=== PATIENT | female | born 1990 | race Caucasian/White ===

== ENCOUNTER 2018-10-20 03:30 | Emergency (ER) | payer SELFPAY ==
[2018-10-20] MEDS ORDERED: AMOX/K CLAV 875 MG TAB ONE (04:16)
[2018-10-20] MEDS ORDERED: KETOROLAC 30 MG/ML INJ ONE (04:16)
--- NOTE | 2018-10-20 04:23 | EDPHYS ---
Physician Documentation [facility] Name: Lloyd Flores Age: 28 yrs Sex: Female : 1990 Arrival Date: 10/20/2018 Time: 03:31 Bed 19 Private MD: ED Physician Kem Reynoso HPI: 10/20 04:19 This 28 yrs old Female presents to ER via Ambulatory with complaints of Tooth gs Infection. 04:19 The patient presents with pain, swelling. The problem is located in the lower right gs first molar. Onset: The symptoms/episode began/occurred 2 day(s) ago. Duration: The symptoms are continuous. Modifying factors: The symptoms are alleviated by nothing, the symptoms are aggravated by chewing, cold fluids. Associated signs and symptoms: Pertinent positives: nausea. Associated signs and symptoms: Pertinent positives: pain. Severity of symptoms: At their worst the symptoms were moderate, in the emergency department the symptoms are unchanged. The patient has experienced similar episodes in the past, a few times. 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 - Social history:: Smoking status: Patient uses tobacco products, denies chronic smoking, but will smoke occasionally. - Ebola Screening: : No symptoms or risks identified at this time. ROS: 04:19 All other systems are negative. gs Exam: 04:19 Head/Face: Normocephalic, atraumatic. Eyes: Pupils equal round and reactive to light, gs extra-ocular motions intact. Lids and lashes normal. Conjunctiva and sclera are non-icteric and not injected. Cornea within normal limits. Periorbital areas with no swelling, redness, or edema. Neck: Trachea midline, no thyromegaly or masses palpated, and no cervical lymphadenopathy. Supple, full range of motion without nuchal rigidity, or vertebral point tenderness. No Meningismus. Chest/axilla: Normal chest wall appearance and motion. Nontender with no deformity. No lesions are appreciated. Cardiovascular: Regular rate and rhythm with a normal S1 and S2. No gallops, murmurs, or rubs. Normal PMI, no JVD. No pulse deficits. Respiratory: Lungs have equal breath sounds bilaterally, clear to auscultation and percussion. No rales, rhonchi or wheezes noted. No increased work of breathing, no retractions or nasal flaring. Abdomen/GI: Soft, non-tender, with normal bowel sounds. No distension or tympany. No guarding or rebound. No evidence of tenderness throughout. Back: No spinal tenderness. No costovertebral tenderness. Full range of motion. Skin: Warm, dry with normal turgor. Normal color with no rashes, no lesions, and no evidence of cellulitis. MS/ Extremity: Pulses equal, no cyanosis. Neurovascular intact. Full, normal range of motion. Neuro: Awake and alert, GCS 15, oriented to person, place, time, and situation. Cranial nerves II-XII grossly intact. Motor strength 5/5 in all extremities. Sensory grossly intact. Cerebellar exam normal. Normal gait. 04:19 Constitutional: The patient appears alert, awake. 04:19 ENT: Dental exam: cellulitis, that is mild, dental caries, that is moderate, specifically in the lower right first molar (#30). Vital Signs: 03:45 BP 110 / 57; Pulse 90; Resp 16; Temp 98.7; Pulse Ox 100% ; Weight 96.62 kg; Height 2 aa1 ft. 6 in. (76.20 cm); Pain 5/10; 03:45 Body Mass Index 166.39 (96.62 kg, 76.20 cm) aa1 MDM: 04:04 Patient medically screened. 04:19 Differential diagnosis: dental caries, gingivitis, dental abscess. Data reviewed: vital gs signs, nurses notes. Counseling: I had a detailed discussion with the patient and/or guardian regarding: the historical points, exam findings, and any diagnostic results supporting the discharge/admit diagnosis, the need for outpatient follow up, a dentist. Response to treatment: the patient's symptoms have mildly improved after treatment, and as a result, I will discharge patient. Administered Medications: 04:21 Drug: TORadol 30 mg Route: IM; Site: right deltoid; tr5 04:30 Follow up: Response: No adverse reaction; Pain is decreased tr5 04:22 Drug: Amoxicillin 875 mg Route: PO; tr5 04:30 Follow up: Response: No adverse reaction tr5 Disposition: 10/20/18 04:22 Discharged to Home. Impression: Gingivitis and periodontal diseases, Dental caries. - Condition is Stable. - Discharge Instructions: Dental Caries, Adult. - Prescriptions for Amoxicillin 875 mg Oral Tablet - take 1 tablet by ORAL route every 12 hours for 7 days; 14 tablet. Tylenol- Codeine #4 300-60 mg Oral Tablet - take 1 tablet by ORAL route every 6 hours As needed; 6 tablet. - Medication Reconciliation Form, Thank You Letter, Antibiotic Education, Prescription Opioid Use form. - Follow up: Private Physician; When: 2 - 3 days; Reason: Re-evaluation by your physician. Signatures: Brinda Limon RN RN aa1 Kem Reynoso MD MD gs Brian Bustillo RN RN tr5 Corrections: (The following items were deleted from the chart) 04:31 04:22 10/20/2018 04:22 Discharged to Home. Impression: Gingivitis and periodontal tr5 diseases; Dental caries. Condition is Stable. Forms are Medication Reconciliation Form, Thank You Letter, Antibiotic Education, Prescription Opioid Use. Follow up: Private Physician; When: 2 - 3 days; Reason: Re-evaluation by your physician. gs
--- NOTE | 2018-10-20 04:23 | ER ---
Nurse's Notes [facility] Name: Lloyd Flores Age: 28 yrs Sex: Female : 1990 Arrival Date: 10/20/2018 Time: 03:31 Bed 19 Private MD: Diagnosis: Gingivitis and periodontal diseases;Dental caries Presentation: 10/20 03:45 Presenting complaint: Patient states: R sided tooth pain with nausea and dizziness x 3 aa1 days. Transition of care: patient was not received from another setting of care. Onset of symptoms was October 18, 2018. Risk Assessment: Do you want to hurt yourself or someone else? Patient reports no desire to harm self or others. Initial Sepsis Screen: Does the patient meet any 2 criteria? No. Patient's initial sepsis screen is negative. Does the patient have a suspected source of infection? No. Patient's initial sepsis screen is negative. Care prior to arrival: None. 03:45 Method Of Arrival: Ambulatory aa1 03:45 Acuity: [id number] 4 aa1 Triage Assessment: 03:45 General: Appears in no apparent distress. comfortable, Behavior is calm, cooperative, aa1 appropriate for age. 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 - Social history:: Smoking status: Patient uses tobacco products, denies chronic smoking, but will smoke occasionally. - Ebola Screening: : No symptoms or risks identified at this time. Screenin:06 Abuse screen: Denies threats or abuse. Nutritional screening: No deficits noted. tr5 Tuberculosis screening: No symptoms or risk factors identified. Fall Risk None identified. Assessment: 03:59 General: Appears distressed, Behavior is calm, cooperative, appropriate for age. Pain: tr5 Complains of pain in face Pain does not radiate. Quality of pain is described as aching, pressure, Pain began 2-3 days ago. Neuro: Level of Consciousness is awake, alert, obeys commands, Oriented to person, place, time, Behavioral Health Case Manager are equal bilaterally Moves all extremities. Neuro: Reports dizziness. Cardiovascular: Heart tones present Bruits absent Capillary refill < 3 seconds Pulses are all present. Edema is absent. Respiratory: Airway is patent Trachea midline Respiratory effort is even, unlabored, Respiratory pattern is regular, symmetrical, Breath sounds are clear bilaterally. GI: Abdomen is round Bowel sounds present X 4 quads. Abd is soft X 4 quads Reports nausea. : No signs and/or symptoms were reported regarding the genitourinary system. EENT: No signs and/or symptoms were reported regarding the EENT system. Derm: Skin is intact. Musculoskeletal: Capillary refill < 3 seconds, Range of motion: intact in all extremities. Vital Signs: 03:45 BP 110 / 57; Pulse 90; Resp 16; Temp 98.7; Pulse Ox 100% ; Weight 96.62 kg; Height 2 aa1 ft. 6 in. (76.20 cm); Pain 5/10; 03:45 Body Mass Index 166.39 (96.62 kg, 76.20 cm) aa1 ED Course: 03:31 Patient arrived in ED. ds1 03:45 Arm band placed on Patient placed in an exam room. aa1 03:52 Kem Reynoso MD is Attending Physician. 03:54 Triage completed. aa1 03:56 Brian Bustillo RN is Primary Nurse. tr5 04:06 Bed in low position. Call light in reach. Door closed. Noise minimized. tr5 04:31 No provider procedures requiring assistance completed. Patient did not have IV access tr5 during this emergency room visit. Administered Medications: 04:21 Drug: TORadol 30 mg Route: IM; Site: right deltoid; tr5 04:30 Follow up: Response: No adverse reaction; Pain is decreased tr5 04:22 Drug: Amoxicillin 875 mg Route: PO; tr5 04:30 Follow up: Response: No adverse reaction tr5 Outcome: 04:22 Discharge ordered by . 04:31 Discharged to home ambulatory. tr5 04:31 Condition: stable 04:31 Discharge instructions given to patient, Instructed on discharge instructions, follow up and referral plans. Demonstrated understanding of instructions, follow-up care. 04:31 Patient left the ED. tr5 Signatures: Brinda Limon RN RN aa1 Ambreen Arellano ds1 Kem Reynoso MD MD Keny, Brian, RN RN tr5
== END 2018-10-20 04:31 | disposition home or self-care (01) ==
LOC: ER 03:30
DX: K02.9 Dental caries, unspecified (principal); K05.6 Periodontal disease, unspecified; K05.10 Chronic gingivitis, plaque induced; Z72.0 Tobacco use; Z91.013 Allergy to seafood
CPT/HCPCS: 96372; 99283